=== PATIENT | female | born 1970 | race African-American/Black ===

== ENCOUNTER 2022-08-21 11:32 | Emergency (ER) | payer OTHER, SELFPAY ==
--- NOTE | ~2022-08-21 | US_ITS ---
Duplex Sonography of the left extremity: Indication: Pain Findings: Sagittal and transverse B-mode images as well as color-flow imaging were performed on the l eft femoral and popliteal veins. B-mode examination was done without and with compression in the tra nsverse plane. There is good visualization of the common femoral, proximal profunda femoral, superfi cial femoral, greater saphenous, and popliteal veins. Normal flow was seen on color-flow imaging. No rmal compressibility was demonstrated. Impression: No evidence of deep vein thrombosis involving the left femoral, greater saphenous, superficial femora l, or popliteal veins. Reviewed, dictated and finalized at location [facility] [employer] Impression: No evidence of deep vein thrombosis involving the left femoral, greater sapheno us, superficial femoral, or popliteal veins.
--- NOTE | ~2022-08-21 | XR_ITS ---
Left Knee Technique: AP, lateral, and oblique views were obtained. Clinical History: Pain Findings: No fracture or dislocation is seen. Osseous alignment is anatomic. Minimal degenerative spu rring noted. Soft tissues are unremarkable. No joint effusion is seen. Impression: Minimal degenerative spurring. Reviewed, dictated and finalized at [facility]. LE TIER Impression: Minimal degenerative spurring.
[2022-08-21 11:56] VITALS: BP 152/105; PULSE 90; RESP 16; TEMP 36.3; O2SAT 99
--- NOTE | 2022-08-21 12:09 | ED.LOWEXIN ---
HPI - Extremity Injury (Lower) General Chief Complaint: Extremity Injury, Lower Stated Complaint: Pain in left leg from calf to thigh Time Seen by Provider: 08/21/22 12:06 History of Present Illness HPI Narrative: Patient is a 52-year-old female with a history of hypertension presenting with left leg pain. Patient states that she fell in the shower approximately a week ago. States that several days after this she developed pain behind her left knee that radiates to her left lateral thigh and into her left calf. Weightbearing exacerbates the pain. States that she has taken aspirin with minimal relief. Report swelling to the left knee. She denies history of blood clots. No chest pain or shortness of breath. No further complaints or injuries. Related Data Allergies Allergy/AdvReac Type Severity Reaction Status Date / Time Sulfa (Sulfonamide Allergy Swelling Verified 08/21/22 12:03 Antibiotics) of Lip/Tongue/Throat Review of Systems Review of Systems: All systems reviewed & are unremarkable except as noted in HPI and below Exam Narrative: GENERAL: Well-appearing, well-nourished, and in no acute distress. HEAD: Normocephalic, atraumatic. EYES: PERRLA and EOMI. ENT: Nares clear, no rhinorrhea or epistaxis. Mucous membranes moist. NECK: Supple. CHEST: No respiratory distress. HEART: Regular rate and rhythm. Normal peripheral pulses. ABDOMEN: Soft, nondistended EXTREMITIES: Normal range of motion. left knee w/posterior tenderness, left knee swollen without overlying erythema SKIN: Warm, dry, no rash. NEURO: No focal deficits. Alert and oriented x3. PSYCH: Normal mood and affect. Course Vital Signs Vital signs: Vital Signs Temperature 97.4 F L 08/21/22 11:56 Pulse Rate 90 08/21/22 11:56 Respiratory Rate 16 08/21/22 11:56 Blood Pressure 152/105 H 08/21/22 11:56 Pulse Oximetry 99 08/21/22 11:56 Oxygen Delivery Room Air 08/21/22 11:56 Temperature 97.4 F L 08/21/22 11:56 Pulse Rate 90 08/21/22 11:56 Respiratory Rate 16 08/21/22 11:56 Blood Pressure 152/105 H 08/21/22 11:56 Pulse Oximetry 99 08/21/22 11:56 Oxygen Delivery Room Air 08/21/22 11:56 MDM - Extremity Injury (Lower) MDM Narrative Medical decision making narrative: Patient is a 52-year-old female presenting with left leg pain. Patient is slightly hypertensive, otherwise vitals are within normal limits. Knee x-ray shows mild osteoarthritis. Doppler of the left lower extremity shows no evidence of DVT. Discussed the reassuring work-up. Advised Tylenol and ibuprofen for pain control. Advised PCP follow-up. Appropriate return precautions given. Patient discharged in stable condition. Differential Diagnosis Differential diagnosis: Likely other (fracture, DVT, muscle strain, rosario's cyst) Critical Care Time Critical Care Time Critical Care Time: No Discharge Plan Discharge Clinical Impression: Left leg pain Patient Disposition: Home, Self-Care Condition: Stable Instructions: Antibiotic Form Additional Instructions: Please use Tylenol and ibuprofen for pain control. Please follow-up with your PCP. If your symptoms worsen, you develop chest pain or shortness of breath, or other concerning symptoms arise, please return to the ER. Prescriptions: New amlodipine [Norvasc] 5 mg tablet 5 mg PO DAILY Qty: 7 0RF Follow-up/Referrals: Jasvir,Marjorie Nieves MD [Primary Care Provider] -
--- NOTE | 2022-08-21 12:10 | PC.NURSE ---
Dr. Connelly at bedside for patient assessment.
[2022-08-21] MEDS: IBUPROFEN 400 MG TABLET 800 MG PO (12:23)
--- NOTE | 2022-08-21 12:44 | PC.NURSE ---
Pt to ultrasound
== END 2022-08-21 14:04 | disposition home or self-care (01) ==
PROVIDERS: Emergency Provider Emergency Medicine; PCP Family Medicine
DX: M79.662 Pain in left lower leg (principal)
CPT/HCPCS: 73562; 93971; 99284; A9270

== ENCOUNTER 2023-03-01 20:10 | Emergency (ER) | payer OTHER, SELFPAY ==
--- NOTE | ~2023-03-01 | XR_ITS ---
EXAMINATION: XR chest 2V 03/01/2023 21:03 INDICATION: Chest pain PROCEDURE: 2 view chest COMPARISON: No prior studies for comparison. FINDINGS: The lungs are clear. The cardiomediastinal silhouette is within normal limits. There are no pleural effusions. There is no pneumothorax suspected. IMPRESSION: 1: NO ACUTE CARDIOPULMONARY DISEASE. Reviewed, dictated and finalized at location [facility].
--- NOTE | 2023-03-01 20:11 | ECG_ITS ---
Measurements Intervals [place] Rate: 91 P: 64 VA: 170 QRS: 14 QRSD: 85 T: 31 QT: 333 QTc: 411 Interpretive Statements SINUS RHYTHM DELAYED PRECORDIAL R/S TRANSITION BORDERLINE ECG NO PREVIOUS ECG AVAILABLE FOR COMPARISON Electronically Signed On 03-01-2023 20:29:26 CDT by Tru Melara D.O.
[2023-03-01 20:39] LABS: Basophils Percent Auto 0.3 % (0.2-1.2); Eosinophils Absolute Auto 0.3 K/mm3 (0-0.3); Eosinophils Percent Auto 2.3 % (0-4.4); Hematocrit 36.8 % (37.0-47.0); Hemoglobin 11.3 g/dL (12.0-15.0); Immature Granulocyte Absolute 0.03 K/mm3 (0.00-0.031); Immature Granulocyte Percent A 0.3 % (0-0.5); Lymphocytes Absolute Auto 2.17 K/mm3 (0.9-3.2); Lymphocytes Percent Auto 18.5 % (18.3-44.2); Mean Corpuscular HGB Conc 30.7 g/dl (32-36); Mean Corpuscular Hemoglobin 25.9 pg (26-34); Mean Corpuscular Volume 84.2 fl (80-100); Monocytes Absolute Auto 0.8 K/mm3 (0.1-0.6); Monocytes Percent Auto 6.7 % (2.6-8.5); Neutrophils Absolute Auto 8.5 K/mm3 (1.3-6.7); Neutrophils Percent Auto 71.9 % (45.5-73.1); Platelet Count Result 326 k/mm3 (150-375); Red Blood Count 4.37 M/mm3 (4.2-5.4); Red Cell Distribution Width 14.5 % (11.5-14.5); White Blood Count 11.8 K/mm3 (4.5-10.0)
[2023-03-01 20:50] LABS: Prothrombin Time 13.3 Seconds (11.1-14.7)
[2023-03-01 20:51] VITALS: BP 158/72; PULSE 98; RESP 15; TEMP 36.8; O2SAT 99
[2023-03-01 20:51] LABS: Partial Thromboplastin Time 36.1 SECONDS (22.3-36.8)
[2023-03-01 20:58] LABS: Alanine Aminotransferase 20 U/L (6-35); Albumin Level 4.5 g/dL (3.5-5.1); Alkaline Phosphatase 104 U/L (38-126); Anion Gap 9 mmol/L (8-16); Aspartate Amino Transferase 19 U/L (14-36); Bilirubin,Total 0.3 mg/dL (0.2-1.3); Blood Urea Nitrogen 12 mg/dL (7-17); Carbon Dioxide 25 mmol/L (22-30); Chloride 101 mmol/L (98-107); Estimated Glomerular Filt Rate > 60; Glucose 137 mg/dL (65-110); Lipase 40 U/L (23-300); Potassium 4.2 mmol/L (3.4-5.0); Sodium 135 mmol/L (137-145)
[2023-03-01 21:09] LABS: Troponin I < 0.012 ng/mL (0.000-0.034)
[2023-03-02 01:41] VITALS: BP 152/89; PULSE 96; RESP 18; TEMP 36.6; O2SAT 99
[2023-03-02 02:16] LABS: Troponin I < 0.012 ng/mL (0.000-0.034)
[2023-03-02 03:25] VITALS: BP 146/80; PULSE 84; RESP 20; O2SAT 100; O2SAT 99
[2023-03-02 03:33] VITALS: BP 139/82; PULSE 83; RESP 19; O2SAT 99
[2023-03-02 04:17] VITALS: BP 132/70; PULSE 78; RESP 18; O2SAT 100
[2023-03-02] MEDS: KETOROLAC 30 MG/ML VIAL (*BKC) IM (04:29)
[2023-03-02 04:30] VITALS: PULSE 81; RESP 17; O2SAT 100
[2023-03-02 04:32] VITALS: BP 139/72; PULSE 79; RESP 18; O2SAT 100
--- NOTE | 2023-03-02 04:49 | ED.GENADULT ---
HPI - General Adult General Chief complaint: Chest Pain Stated complaint: CHEST PAIN TODAY Time Seen by Provider: 03/02/23 03:37 History of Present Illness HPI narrative: Patient is a 53-year-old female who presents the emergency department with chief complaint of chest pain. The patient reports she has a sharp-like pain in her upper back muscles just lateral to the spine patient reports the pain is worse with movement and reports that it hurts with inspiration. The patient reports no trauma denies fever reports that she has had an episode like this before in the past and had CT scans to evaluate for possible blood clot that were negative patient reports that she has been under a lot of stress patient reports that she has no weakness in her arms or legs does report that she had a little bit of tingling in her fingers on the right side. Related Data Allergies Allergy/AdvReac Type Severity Reaction Status Date / Time Sulfa (Sulfonamide Allergy Swelling Verified 03/02/23 03:28 Antibiotics) of Lip/Tongue/Throat Review of Systems Review of Systems: A 10 system review of systems was completed on the patient and is negative except for what is stated in the HPI. Nursing and ancillary documentation was reviewed. Exam Narrative: GENERAL: Well-appearing, well-nourished, and in no acute distress. HEAD: Normocephalic, atraumatic. EYES: PERRLA and EOMI. ENT: Nares clear, no rhinorrhea or epistaxis. Mucous membranes moist. NECK: Supple. CHEST: Clear to auscultation. No respiratory distress. Chest wall is tender to palpation the right sternal border HEART: Regular rate and rhythm. No murmur heard. Normal peripheral pulses. Back: There is tenderness to palpation of the paraspinous muscles of the right side of the back and neck ABDOMEN: Soft, nontender, nondistended, normal active bowel sounds. EXTREMITIES: Normal range of motion. No edema. SKIN: Warm, dry, no rash. NEURO: No focal deficits. Alert and oriented x3. PSYCH: Normal mood and affect. Course Vital Signs Vital signs: Vital Signs Temperature 36.8 C 03/01/23 20:51 Pulse Rate 98 03/01/23 20:51 Respiratory Rate 15 03/01/23 20:51 Blood Pressure 158/72 H 03/01/23 20:51 Pulse Oximetry 99 03/01/23 20:51 Oxygen Delivery Room Air 03/01/23 20:51 Temperature 36.6 C 03/02/23 01:41 Pulse Rate 84 03/02/23 03:25 Respiratory Rate 20 03/02/23 03:25 Blood Pressure 146/80 H 03/02/23 03:25 Pulse Oximetry 100 03/02/23 03:25 Oxygen Delivery Room Air 03/02/23 03:25 Medical Decision Making MDM Narrative Medical decision making narrative: Differential diagnosis includes ACS, musculoskeletal chest wall pain, pneumothorax Chest x-ray showed no focal infiltrate no evidence of widened mediastinum or pneumothorax Laboratory studies were obtained that were within normal limits patient had 3 sets of cardiac markers that were negative EKG showed no acute ischemic changes Patient was given a dose of Toradol in the emergency department feeling much better Vital Signs Vital Signs: Vital Signs Temperature 36.8 C 03/01/23 20:51 Pulse Rate 98 03/01/23 20:51 Respiratory Rate 15 03/01/23 20:51 Blood Pressure 158/72 H 03/01/23 20:51 Pulse Oximetry 99 03/01/23 20:51 Oxygen Delivery Room Air 03/01/23 20:51 Temperature 36.6 C 03/02/23 01:41 Pulse Rate 84 03/02/23 03:25 Respiratory Rate 20 03/02/23 03:25 Blood Pressure 146/80 H 03/02/23 03:25 Pulse Oximetry 100 03/02/23 03:25 Oxygen Delivery Room Air 03/02/23 03:25 Lab Data 03/01/23 20:34 03/01/23 20:34 Labs: Lab Results 03/01/23 03/01/23 03/02/23 Range/Units 20:34 20:34 01:38 WBC 11.8 H (4.5-10.0) K/mm3 RBC 4.37 (4.2-5.4) M/mm3 Hgb 11.3 L (12.0-15.0) g/dL Hct 36.8 L (37.0-47.0) % MCV 84.2 (80-100) fl MCH 25.9 L (26-34) pg MCHC 30.7 L (32-36) g/dl RDW 14.5 (11
== END 2023-03-02 05:06 | disposition home or self-care (01) ==
PROVIDERS: Emergency Medicine; Emergency Provider Emergency Medicine; PCP Family Medicine
DX: R07.89 Other chest pain (principal); R94.31 Abnormal electrocardiogram [ECG] [EKG]
CPT/HCPCS: 36415; 71046; 80053; 83690; 84484; 85025; 85610; 85730; 93005; 96372; 99284; J1885